=== PATIENT | male | born 1945 | race Caucasian/White ===

== ENCOUNTER 2017-01-17 21:28 | Inpatient (IN) | payer OTHER ==
[~2017-01-17] VITALS: Ht 172.7 cm; Wt 72.0 kg
[~2017-01-17 21:28] MED LIST: ASPI81 PO; ATOR20TA PO; CARV6.25 PO; CYMB30CA PO; D31000TA PO; FINA5TAB77 PO; FOLI1 PO; HYDR-3534 PO; LEVE750T8 PO; LEVO.025 PO; LISI5 PO; MORP30SU PO; TRAZ100 PO; WARF3TAB PO
[2017-01-17 21:44] VITALS: BP 160/68; PULSE 97; RESP 22; TEMP 98.1; O2SAT 94
[2017-01-17] MEDS ORDERED: ASPI1TAB69 PO (21:50)
[2017-01-17] MEDS ORDERED: ATOR20TA15 PO (21:50)
[2017-01-17] MEDS ORDERED: CARV6.25 PO (21:51)
[2017-01-17] MEDS ORDERED: CHOL1CAP14 PO (21:51)
[2017-01-17] MEDS ORDERED: CYMB30CA PO (21:52)
[2017-01-17] MEDS ORDERED: FOLI5CAP PO (21:52)
[2017-01-17] MEDS ORDERED: PROS5TAB PO (21:52)
[2017-01-17] MEDS ORDERED: LEVE750T8 PO (21:53)
[2017-01-17] MEDS ORDERED: LEVO25TA4 PO (21:53)
[2017-01-17] MEDS ORDERED: TRAZ100T4 PO (21:54)
[2017-01-17] MEDS ORDERED: HYDR-3580 PO (21:54)
[2017-01-17] MEDS ORDERED: COUM3TAB PO (21:54)
[2017-01-17 22:08] VITALS: RESP 18; O2SAT 94
[2017-01-17] MEDS ORDERED: SODIUM CHLORIDE 0.9% FLUSH 10 ML FLUSH IVF PRN (22:15)
[2017-01-17 22:26] LABS: AUTOMATED NEUTROPHIL # 5.5 TH/MM3 (1.8-7.7); BASOPHIL # 0.1 TH/MM3 (0-0.2); BASOPHIL % 0.9 % (0.0-2.0); EOSINOPHIL # 0.3 TH/MM3 (0-0.4); EOSINOPHIL % 4.1 % (0.0-4.0); HEMATOCRIT 31.7 % (39.0-51.0); HEMO FLAGS DIFF FINAL; LYMPH % 16.1 % (9.0-44.0); LYMPHOCYTE # 1.3 TH/MM3 (1.0-4.8); MEAN CELL VOLUME 87.4 FL (80.0-100.0); MEAN CORPUSCULAR HEMOGLOBIN 29.8 PG (27.0-34.0); MEAN CORPUSCULAR HGB CONC 34.1 % (32.0-36.0); NEUT % 68.9 % (16.0-70.0); PLATELET COUNT 149 TH/MM3 (150-450); RED BLOOD COUNT 3.62 MIL/MM3 (4.50-5.90)
--- NOTE | 2017-01-17 22:30 | RADRPT ---
EXAM DATE/TIME: 01/17/2017 22:15 [place] COMPARISON: CHEST PA & LAT, January 18, 2016, 7:48. CHEST SINGLE AP, January 12, 2016, 15:33. INDICATIONS : Short of breath. MEDICAL HISTORY : Chronic obstructive pulmonary disease. Cardiovascular disease. SURGICAL HISTORY : CABG. Pacemaker. ENCOUNTER: Initial ACUITY: 1 day PAIN SCORE: 0/10 LOCATION: Bilateral chest FINDINGS: 2 AP portable erect views of the chest were obtained and demonstrate the patient status post median s ternotomy for bypass grafting procedure. The left subclavian transvenous pacer remains in place. The heart size remains mildly prominent. There is mild patchy opacity at the left lung base. There is sta ble elevation of left hemidiaphragm. There is overlying artifact. CONCLUSION: No significant change. Mild patchy opacity remains at the left lung base with mild elevation of the l eft hemidiaphragm. Star Torres MD on January 17, 2017 at 22:27 Board Certified Radiologist. This report was verified electronically.
[2017-01-17 22:33] LABS: APTT (PATIENT) 73.5 SEC (24.3-30.1); INTERNATIONAL NORMALIZED RATIO 4.4 RATIO; PROTHROMBIN TIME - PATIENT 52.1 SEC (9.8-11.6)
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
[2017-01-17 22:55] LABS: ANION GAP 12 MEQ/L (5-15); AST (GOT) 16 U/L (15-37); BICARBONATE 19.7 MEQ/L (21.0-32.0); BLOOD UREA NITROGEN 31 MG/DL (7-18); CHLORIDE 108 MEQ/L (98-107); GLOMERULAR FILTRATION RATE 40 ML/MIN (>89); POTASSIUM 3.8 MEQ/L (3.5-5.1); SODIUM (NA) 140 MEQ/L (136-145)
[2017-01-17 22:59] LABS: ALKALINE PHOSPHATASE 115 U/L (45-117); ALT (GPT) 17 U/L (12-78); CREATINE KINASE 108 U/L (39-308); TOTAL BILIRUBIN ADULT 0.4 MG/DL (0.2-1.0)
[2017-01-17 23:11] LABS: CKMB 1.2 NG/ML (0.5-3.6)
[2017-01-18] VITALS (9 sets, daily range): BP systolic 105–127; BP diastolic 51–63; PULSE 66–78; RESP 16–24; TEMP 97.3–98.1; O2SAT 93–98
[2017-01-18] MEDS ORDERED: ACETAMINOPHEN/HYDROcodone 325 MG/5 MG TAB PO ONE (00:45)
[2017-01-18] MEDS ORDERED: NALOXONE HCL 0.4 MG/ML AMP IV PRN (00:45)
[2017-01-18] MEDS ORDERED: AZITHROMYCIN INJ 500 MG in SODIUM CHLOR 0.9% 250 ML INJ 250 ML IV ONE (01:00)
[2017-01-18] MEDS ORDERED: RESP: ALBUTEROL 2.5 MG/IPRATROPIUM 0.5 MG NEB (PRN) NEB (01:00)
[2017-01-18] MEDS ORDERED: cefTRIAXone INJ 1,000 MG in SODIUM CHLORIDE 0.9% INJ 100 ML IV ONE (01:00)
[2017-01-18] MEDS: RESP: ALBUTEROL 2.5 MG/IPRATROPIUM 0.5 MG NEB (SCH) NEB ×4 (03:05→20:55)
[2017-01-18 06:05] LABS: CREATINE KINASE 94 U/L (39-308)
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
[2017-01-18] MEDS ORDERED: methylPREDNISolone SOD SUCC 40 MG/1 ML VIAL IV PUSH ONE (09:00)
[2017-01-18] MEDS ORDERED: ACETAMINOPHEN 325 MG TAB PO PRN (10:15)
[2017-01-18] MEDS: SODIUM CHLORIDE 0.9% FLUSH 10 ML FLUSH IV FLUSH SCH ×2 (10:26→21:15)
[2017-01-18] MEDS: guaiFENesin/CODEINE SYRUP 200 MG/20 MG/10 ML CUP PO PRN (10:27)
[2017-01-18] MEDS: ACETAMINOPHEN/HYDROcodone 325 MG/7.5 MG TAB PO PRN ×2 (10:27→18:19)
[2017-01-18] MEDS: levETIRAcetam 250 MG TAB PO SCH ×2 (10:30→21:16)
[2017-01-18] MEDS: DULoxetine HCl DR 30 MG CAP PO SCH (11:41)
[2017-01-18] MEDS: LEVOTHYROXINE SODIUM 25 MCG TAB PO SCH (11:42)
[2017-01-18] MEDS: ASPIRIN EC 81 MG TABEC PO SCH (11:42)
[2017-01-18] MEDS: CHOLECALCIFEROL (VIT D3) 5000 UNIT CAP PO SCH (11:42)
[2017-01-18] MEDS: CARVEDILOL 6.25 MG TAB PO SCH ×2 (11:43→21:15)
[2017-01-18 12:12] LABS: CREATINE KINASE 90 U/L (39-308)
--- NOTE | 2017-01-18 12:27 | EC ---
Study Study Date:01/18/2017 STUDY CONCLUSIONS SUMMARY - Left ventricle: The cavity size was dilated. Wall thickness was increased in a pattern of mild LVH. Systolic function was moderately reduced by visual assessment. The estimated ejection fraction was in the range of 35% to 40%. - Mitral valve: Moderate regurgitation directed eccentrically and posteriorly. - Left atrium: The atrium was mildly to moderately dilated. - Tricuspid valve: Mild-moderate regurgitation. If LV function is below 40, please consider prescribing an ACEI or ARB or document rationale for non-use. PROCEDURE DATA STUDY STATUS: Elective. Procedure: Transthoracic echocardiography. Image quality was good. Scanning was performed from the parasternal, apical, and subcostal acoustic windows. Study completion: The patient tolerated the procedure well. Transthoracic echocardiography. M-mode, complete 2D, complete spectral Doppler, and color Doppler. Patient status: Inpatient. CARDIAC ANATOMY LEFT VENTRICLE: Not well visualized. The cavity size was dilated. Wall thickness was increased in a pattern of mild LVH. Systolic function was moderately reduced by visual assessment. The estimated ejection fraction was in the range of 35% to 40%. Images were inadequate for LV wall motion assessment. AORTIC VALVE: Trileaflet; normal thickness leaflets. Doppler: Transvalvular velocity was within the normal range. There was no stenosis. No regurgitation. AORTA: Aortic root: The aortic root was normal in size. MITRAL VALVE: Structurally normal valve. Doppler: Transvalvular velocity was within the normal range. There was no evidence for stenosis. Moderate regurgitation directed eccentrically and posteriorly. Peak gradient: 4mm Hg (D). LEFT ATRIUM: The atrium was mildly to moderately dilated. RIGHT VENTRICLE: The cavity size was normal. Wall thickness was normal. Pacer wire or catheter noted in right ventricle. PULMONIC VALVE: Doppler: Transvalvular velocity was within the normal range. There was no evidence for stenosis. No regurgitation. TRICUSPID VALVE: Structurally normal valve. Doppler: Transvalvular velocity was within the normal range. Mild-moderate regurgitation. PULMONARY ARTERY: The main pulmonary artery was normal-sized. Systolic pressure was within the normal range. RIGHT ATRIUM: The atrium was normal in size. PERICARDIUM: There was no pericardial effusion. SYSTEMIC VEINS: Inferior vena cava: The vessel was normal in size. BASIC MEASUREMENTS ADULT Normal Left ventricle LV internal dimension, ED, chordal level, *52.2 mm 43-52 PLAX LV internal dimension, ES, chordal level, *45.4 mm 23-38 PLAX Fractional shortening, chordal level, PLAX *13 % >29 LV posterior wall thickness, ED 11.9 mm IVS/LVPW ratio, ED 0.97 <1.3 Ventricular septum Septal thickness, ED 11.5 mm Aortic valve Leaflet separation 21 mm 15-26 Left atrium Anterior-posterior dimension 47 mm Right ventricle RV internal dimension, ED, PLAX 22.5 mm 19-38 BASIC MEASUREMENTS ADULT Normal Aortic valve Leaflet separation 21 mm 15-26 Aorta Root diameter, ED 33 mm 20-37 Left atrium Anterior-posterior dimension, ES *45 mm 19-40 LA/aortic root ratio 1.36 DOPPLER MEASUREMENTS ADULT Normal Mitral valve Peak E-wave velocity 101 cm/s Peak A-wave velocity 79 cm/s Peak gradient, D 4 mm Hg Peak E/A ratio 1.3 Maximal regurgitant velocity 523 cm/s Tricuspid valve Regurgitant peak velocity 264 cm/s Peak RV-RA gradient, S 28 mm Hg LEGEND: Mean values are shown as u=mean value. Asterisk (*) blake values outside specified normal range. Prepared and signed by Naif Swanson [id number]
[2017-01-18] MEDS: BENZONATATE 100 MG CAP PO SCH ×2 (14:30→18:19)
[2017-01-18] MEDS: methylPREDNISolone SOD SUCC 40 MG/1 ML VIAL IV PUSH SCH ×2 (14:31→21:15)
[2017-01-18] MEDS: ACETAMINOPHEN/HYDROcodone 325 MG/5 MG TAB PO PRN (14:31)
--- NOTE | 2017-01-18 18:29 | EKG ---
Date Performed: 01/17/2017 Time Performed: 21:47:01 PTAGE: 71 years EKG: ELECTRONIC VENTRICULAR PACEMAKER ABNORMAL RHYTHM ECG Compared to prior tracing no significa nt change PREVIOUS TRACING : 01/18/2016 07.30 DOCTOR: Yuan Avilez Interpretating Date/Time 01/18/2017 18:26:45
--- NOTE | 2017-01-18 18:30 | EKG ---
Date Performed: 01/18/2017 Time Performed: 04:06:15 PTAGE: 71 years EKG: ELECTRONIC VENTRICULAR PACEMAKER ABNORMAL RHYTHM ECG Compared to prior tracing no significa nt change PREVIOUS TRACING : 01/17/2017 21.47 DOCTOR: Yuan Avilez Interpretating Date/Time 01/18/2017 18:26:55
[2017-01-18] MEDS: SODIUM CHLORIDE 0.9% FLUSH 10 ML FLUSH IV FLUSH PRN (21:15)
[2017-01-18] MEDS: ATORVASTATIN 20 MG TAB PO SCH (21:16)
[2017-01-18] MEDS: traZODone HCL 100 MG TAB PO SCH (21:16)
[2017-01-19] VITALS (7 sets, daily range): BP systolic 110–167; BP diastolic 53–77; PULSE 60–80; RESP 18–22; TEMP 97.6–98; O2SAT 93–96
[2017-01-19] MEDS: ACETAMINOPHEN/HYDROcodone 325 MG/7.5 MG TAB PO PRN ×4 (01:02→20:24)
[2017-01-19] MEDS: RESP: ALBUTEROL 2.5 MG/IPRATROPIUM 0.5 MG NEB (SCH) NEB ×4 (03:42→20:50)
[2017-01-19] MEDS: LEVOTHYROXINE SODIUM 25 MCG TAB PO SCH (06:18)
[2017-01-19] MEDS: SODIUM CHLORIDE 0.9% FLUSH 10 ML FLUSH IV FLUSH PRN (06:18)
[2017-01-19] MEDS: methylPREDNISolone SOD SUCC 40 MG/1 ML VIAL IV PUSH SCH ×3 (06:18→22:08)
[2017-01-19 07:44] LABS: INTERNATIONAL NORMALIZED RATIO 4.1 RATIO
[2017-01-19 07:53] LABS: AUTOMATED NEUTROPHIL # 11.1 TH/MM3 (1.8-7.7); BASOPHIL % 0.2 % (0.0-2.0); HEMATOCRIT 30.2 % (39.0-51.0); HEMO FLAGS DIFF FINAL; LYMPH % 4.3 % (9.0-44.0); LYMPHOCYTE # 0.5 TH/MM3 (1.0-4.8); MEAN CELL VOLUME 87.6 FL (80.0-100.0); MEAN CORPUSCULAR HEMOGLOBIN 28.2 PG (27.0-34.0); MEAN CORPUSCULAR HGB CONC 32.2 % (32.0-36.0); MONO % 3.2 % (0.0-8.0); NEUT % 92.3 % (16.0-70.0); PLATELET COUNT 144 TH/MM3 (150-450); RED BLOOD COUNT 3.44 MIL/MM3 (4.50-5.90); RED CELL DISTRIBUTION WIDTH 15.2 % (11.6-17.2)
[2017-01-19 08:13] LABS: BICARBONATE 21.9 MEQ/L (21.0-32.0); POTASSIUM 4.6 MEQ/L (3.5-5.1)
[2017-01-19] MEDS: CHOLECALCIFEROL (VIT D3) 5000 UNIT CAP PO SCH (09:15)
[2017-01-19] MEDS: DULoxetine HCl DR 30 MG CAP PO SCH (09:15)
[2017-01-19] MEDS: levETIRAcetam 250 MG TAB PO SCH ×2 (09:15→20:10)
[2017-01-19] MEDS: CARVEDILOL 6.25 MG TAB PO SCH ×2 (09:15→20:09)
[2017-01-19] MEDS: ASPIRIN EC 81 MG TABEC PO SCH (09:16)
[2017-01-19] MEDS: BENZONATATE 100 MG CAP PO SCH ×3 (09:16→16:36)
[2017-01-19] MEDS: ACETAMINOPHEN/HYDROcodone 325 MG/5 MG TAB PO PRN ×2 (09:16→15:07)
[2017-01-19] MEDS: SODIUM CHLORIDE 0.9% FLUSH 10 ML FLUSH IV FLUSH SCH ×2 (09:16→20:10)
[2017-01-19] MEDS: guaiFENesin/CODEINE SYRUP 200 MG/20 MG/10 ML CUP PO PRN (11:18)
--- NOTE | 2017-01-19 11:35 | HHI.PR ---
Subjective Remarks Follow up for COPD exacerbation. The patient reports continued nonproductive cough, shortness of breath, and wheezing today. The patient reports he was coughing a bunch yesterday then he felt a "pull" at the right side of his abdomen, now feels a large "knot" that is tender to palpation, worse with coughing. He has never noticed this before. He believes there was some overlying redness yesterday but no noticeable redness today. He denies any nausea/vomiting or diarrhea/constipation. He has no other medical complaints at this time. Objective Vitals Vital Signs Date Time Temp Pulse Resp B/P Pulse Ox O2 Delivery O2 Flow Rate FiO2 01/19/17 08:08 97.6 64 18 130/65 96 01/19/17 04:00 98.0 75 20 110/53 96 01/19/17 00:00 97.7 80 22 126/60 93 01/18/17 20:13 98.1 71 20 105/51 93 01/18/17 20:00 66 01/18/17 15:15 97.9 78 16 114/63 96 01/18/17 11:52 97.5 78 16 115/55 96 I/O 01/18/17 01/18/17 01/18/17 01/19/17 01/19/17 01/19/17 07:00 15:00 23:00 07:00 15:00 23:00 Intake Total 400 ml 240 ml 50 ml Output Total 300 ml 500 ml Balance 400 ml -60 ml 50 ml -500 ml Intake Oral 400 ml 240 ml 50 ml Output Urine Total 300 ml 500 ml # Bowel Movements 0 Result Diagram: 01/19/17 0608 01/19/17 0608 Imaging Last Impressions Chest X-Ray 01/17/172202 Signed Impressions: Service Date/Time: Tuesday, January 17, 2017 22:15 - CONCLUSION: No significant change. Mild patchy opacity remains at the left lung base with mild elevation of the left hemidiaphragm. Star Torres MD Objective Remarks GENERAL: Well-nourished, well-developed elderly male patient in [facility]. SKIN: Warm and dry. No rash. HEENT: Normocephalic. Atraumatic.Pupils equal and round. Mucous membranes pink and moist. NECK: Supple. Trachea midline. CARDIOVASCULAR: Regular rate and rhythm. S1, S2 noted. No murmur appreciated. RESPIRATORY: No accessory muscle use. Diffuse expiratory wheezing throughout with scattered rhonchi. Breath sounds equal bilaterally. GASTROINTESTINAL: Abdomen soft, nondistended. Normoactive bowel sounds x4. Right lateral abdominal wall with large mass-like area, tender to palpation. MUSCULOSKELETAL: No obvious deformities. Extremities without clubbing, cyanosis , or edema. NEUROLOGICAL: Awake and alert. No obvious cranial nerve deficits. Motor grossly within normal limits. Normal speech. PSYCHIATRIC: Appropriate mood and affect; insight and judgment normal. Medications and IVs Current Medications Medications (Trade) Dose Ordered Sig/Sina Route Start Time Stop Time Status Last Admin (NS Flush) 2 ml UNSCH PRN IV FLUSH 01/18/17 00:45 01/19/17 06:18 (NS Flush) 2 ml BID IV FLUSH 01/18/17 09:00 01/19/17 09:16 (Narcan Inj) 0.4 mg UNSCH PRN IV 01/18/17 00:45 (SoluMEDROL INJ) 40 mg Q8HR IV PUSH 01/18/17 14:00 01/19/17 06:18 (Tylenol) 650 mg Q6H PRN PO 01/18/17 10:15 ([place] 5-325 Mg) 1 tab Q4H PRN PO 01/18/17 10:15 01/19/17 09:16 ([place] 7.5-325 Mg) 1 tab Q4H PRN PO 01/18/17 10:15 01/19/17 01:02 (Robitussin Ac 200-20 Mg/10 ml Liq) 10 ml Q4HR PRN PO 01/18/17 12:00 01/19/17 11:18 (Tessalon) 100 mg TID PO 01/18/17 13:00 01/19/17 09:16 (Ecotrin Ec) 81 mg DAILY PO 01/18/17 10:30 01/19/17 09:16 (Lipitor) 20 mg HS PO 01/18/17 21:00 01/18/17 21:16 (Coreg) 6.25 mg BID PO 01/18/17 10:30 01/19/17 09:15 (Vitamin D3) 5,000 units DAILY PO 01/18/17 10:30 5/5/17 09:15 (Cymbalta Dr) 30 mg DAILY PO 01/18/17 10:30 01/19/17 09:15 (Keppra) 750 mg BID PO 01/18/17 10:30 01/19/17 09:15 (Synthroid) 12.5 mcg DAILY@06 PO 01/18/17 10:30 01/19/17 06:18 (Desyrel) 200 mg HS PO 01/18/17 21:00 01/18/17 21:16 A/P Problem List: (1) COPD exacerbation ICD Code: J44.1 Status: Acute Assessment and Plan 71-year-old male with history of COPD, CAD s/p CABG, CHF EF 30-35% on echo [id number], Atrial fibrillation s/p pacemaker, on Coumadin, CKD, presents for a 10 day history of productive cough. COPD Exacerbation: likely precipitated by URI. CXR images reviewed, shows mild patchy opacity left lung base. +wheezing on exam. Afebrile, no leukocytosis. Continue antibiotics. Start on IV Solumedrol 40mg q8h. Continue duonebs q6h. Tessalon tid. Robitussin w/codeine prn severe cough. Minimally improved overnight, continue close monitoring. Community Acquired Pneumonia: CXR with patchy opacity LLL. Continue IV Rocephin/ Azithro. Supportive treatment with bronchodilators and antitussives as above. Atypical Chest Pain: suspect secondary to cough/pneumonia as above, pain worse with cough/deep inspiration. Doubt PE with supratherapeutic INR. Ruled out ACS with serial cardiac enzymes x3 and EKG without acute ischemic changes. Continue patient's aspirin, statin, BB. Monitor on telemetry. Abdominal Pain: with palpable mass-like area at right side abdominal wall, possible hematoma with supratherapeutic INR. Check abdominal CT. Monitor CBC. CHF: with elevated BNP 306. Last echocardiogram Oct 2015 showed EF 30-35%. Repeat echocardiogram showed EF 35-40%. Continue patient's coreg, aspirin, statin. Cannot have MADELINE secondary to borderline low BP and CKD. Paroxysmal Atrial Fibrillation with supratherapeutic INR: INR 4.4. Hold coumadin. Monitor daily INR, still supratherapeutic. Continue patient's coreg. CKD, stage III: Cr 1.7, close to patient's baseline of 1.5. Monitor renal function. Avoid nephrotoxins. Hyperlipidemia: chronic, continue patient's statin. Chronic Back Pain: continue patient's [place]. All other medical conditions stable, continue home medications as appropriate. DVT Prophylaxis: on coumadin with supratherapeutic INR Discussed with Dr. Oshea. Kelsie Castro PA-C January 19, 2017 11:35 am
--- NOTE | 2017-01-19 15:51 | EKG ---
Date Performed: 01/18/2017 Time Performed: 10:03:48 PTAGE: 71 years EKG: ELECTRONIC VENTRICULAR PACEMAKER ABNORMAL RHYTHM ECG PREVIOUS TRACING : 01/18/2017 04.06 DOCTOR: Oli Riojas Interpretating Date/Time 01/19/2017 15:41:56
--- NOTE | 2017-01-19 17:38 | RADRPT ---
EXAM DATE/TIME: 01/19/2017 17:15 [place] COMPARISON: No previous studies available for comparison. INDICATIONS : Right upper qudrant pain for ten days. ORAL CONTRAST: No oral contrast ingested. RADIATION DOSE: 12.51 CTDIvol (mGy) MEDICAL HISTORY : Cardiovascular disease. SURGICAL HISTORY : Pacemaker. CABGBack surgery ENCOUNTER: Initial ACUITY: 2 weeks PAIN SCALE: 10/10 LOCATION: Abdomen TECHNIQUE: Volumetric scanning of the abdomen and pelvis was performed. Using automated exposure control and ad justment of the mA and/or kV according to patient size, radiation dose was kept as low as reasonably achievable to obtain optimal diagnostic quality images. FINDINGS: LOWER LUNGS: Elevated left diaphragm with mild atelectasis or scarring at left base. LIVER: Homogeneous density without lesion. There is no dilation of the biliary tree. No calcified [place] es. SPLEEN: Normal size without lesion. PANCREAS: Within normal limits. KIDNEYS: Right renal cysts. No evidence of stone or hydronephrosis. ADRENAL GLANDS: Within normal limits. VASCULAR: Extensive atherosclerotic calcification. Minimal aortic ectasia. BOWEL/MESENTERY: The stomach, small bowel, and colon demonstrate no acute abnormality. There is no free intraperitone al air or fluid. ABDOMINAL WALL: Extensive hematoma in the rectus sheath on the right extending from the upper abdomen down to the ing uinal region with some seepage into the anterior extraperitoneal pelvis adjacent to the bladder. RETROPERITONEUM: There is no lymphadenopathy. BLADDER: No wall thickening or mass. REPRODUCTIVE: Within normal limits. INGUINAL: There is no lymphadenopathy or hernia. MUSCULOSKELETAL: Previous lumbar hardware fusion and multilevel laminectomy. Degenerative changes. CONCLUSION: Extensive hematoma in the right rectus sheath. Markell Titus MD on January 19, 2017 at 17:32 Board Certified Radiologist. This report was verified electronically.
[2017-01-19] MEDS ORDERED: PILL SPLITTER OTHER PRN (18:30)
[2017-01-19] MEDS ORDERED: PHYTONADIONE 5 MG TAB PO ONE (18:30)
[2017-01-19] MEDS: traZODone HCL 100 MG TAB PO SCH (20:09)
[2017-01-19] MEDS: ATORVASTATIN 20 MG TAB PO SCH (20:09)
[2017-01-19 20:48] LABS: HEMATOCRIT 26.5 % (39.0-51.0); REVIEW FLAG FINAL
[2017-01-19] MEDS ORDERED: MORPHINE SULFATE 4 MG/ML INJ IV PUSH PRN (22:00)
[2017-01-20] VITALS (14 sets, daily range): BP systolic 82–130; BP diastolic 40–76; PULSE 68–165; RESP 16–31; TEMP 97.2–98.4; O2SAT 93–100
[2017-01-20 00:16] LABS: HEMATOCRIT 25.5 % (39.0-51.0); REVIEW FLAG FINAL
[2017-01-20] MEDS: HYDROmorphone HCL PF 1 MG/ML VIAL IV PUSH PRN ×2 (00:37→04:32)
[2017-01-20] MEDS: RESP: ALBUTEROL 2.5 MG/IPRATROPIUM 0.5 MG NEB (SCH) NEB ×3 (04:00→20:46)
[2017-01-20 04:03] LABS: ANION GAP 12 MEQ/L (5-15); BICARBONATE 20.9 MEQ/L (21.0-32.0); BLOOD UREA NITROGEN 60 MG/DL (7-18); CHLORIDE 106 MEQ/L (98-107); GLOMERULAR FILTRATION RATE 34 ML/MIN (>89); MAGNESIUM 2.2 MG/DL (1.5-2.5); POTASSIUM 4.7 MEQ/L (3.5-5.1); SODIUM (NA) 139 MEQ/L (136-145)
[2017-01-20 05:44] LABS: INTERNATIONAL NORMALIZED RATIO 3.2 RATIO; PROTHROMBIN TIME - PATIENT 36.7 SEC (9.8-11.6)
[2017-01-20] MEDS: LEVOTHYROXINE SODIUM 25 MCG TAB PO SCH (05:56)
[2017-01-20] MEDS: methylPREDNISolone SOD SUCC 40 MG/1 ML VIAL IV PUSH SCH (05:56)
[2017-01-20 06:06] LABS: BICARBONATE 18.7 MEQ/L (21.0-32.0); POTASSIUM 4.8 MEQ/L (3.5-5.1)
[2017-01-20 06:08] LABS: AUTOMATED NEUTROPHIL # 20.2 TH/MM3 (1.8-7.7); BASOPHIL % 0.1 % (0.0-2.0); HEMATOCRIT 25.5 % (39.0-51.0); HEMO FLAGS DIFF FINAL; LYMPH % 3.1 % (9.0-44.0); LYMPHOCYTE # 0.7 TH/MM3 (1.0-4.8); MEAN CELL VOLUME 92.3 FL (80.0-100.0); MEAN CORPUSCULAR HEMOGLOBIN 29.2 PG (27.0-34.0); MEAN CORPUSCULAR HGB CONC 31.6 % (32.0-36.0); MONO % 4.9 % (0.0-8.0); NEUT % 91.9 % (16.0-70.0); PLATELET COUNT 223 TH/MM3 (150-450); RED BLOOD COUNT 2.76 MIL/MM3 (4.50-5.90); RED CELL DISTRIBUTION WIDTH 15.7 % (11.6-17.2); WHITE BLOOD COUNT 21.9 TH/MM3 (4.0-11.0)
[2017-01-20] MEDS: BENZONATATE 100 MG CAP PO SCH ×3 (08:13→16:52)
[2017-01-20] MEDS: DULoxetine HCl DR 30 MG CAP PO SCH (08:13)
[2017-01-20] MEDS: levETIRAcetam 250 MG TAB PO SCH (08:13)
[2017-01-20] MEDS: SODIUM CHLORIDE 0.9% FLUSH 10 ML FLUSH IV FLUSH SCH (08:13)
[2017-01-20] MEDS: CHOLECALCIFEROL (VIT D3) 5000 UNIT CAP PO SCH (08:13)
[2017-01-20] MEDS: guaiFENesin/CODEINE SYRUP 200 MG/20 MG/10 ML CUP PO PRN ×2 (08:13→13:11)
[2017-01-20] MEDS: CARVEDILOL 6.25 MG TAB PO SCH (08:14)
[2017-01-20] MEDS ORDERED: SODIUM CHLOR 0.9% 250 ML INJ 250 ML IV ONE (08:45)
--- NOTE | 2017-01-20 09:18 | HHI.PR ---
Subjective Remarks Patient seen for follow up COPD exacerbation. 01/20/2017 - patient seen this morning. C/o right-sided abdominal pain and swelling yesterday. CT scan showed extensive, rectus sheath hematoma on the right side. Patient now has low BPs this morning (MAP 50s compared to MAP in 80s yesterday). Uri c/o worsening SOB today. Main complaint is cough not well controlled. On review of EMR, it appears he has refused last several breathing treatments. No F/C or CP. Patient also c/o worsening RLQ pain compared to yesterday. He does feel pain responds well to dilaudid. Denies any N/V or diarrhea. Does have mild dizziness. Objective Vitals Vital Signs Date Time Temp Pulse Resp B/P Pulse Ox O2 Delivery O2 Flow Rate FiO2 01/20/17 08:06 97.9 68 18 85/40 95 01/20/17 06:20 98.4 77 18 96/50 93 01/20/17 05:02 16 01/20/17 00:08 98.4 76 18 129/60 97 01/19/17 20:22 98.0 67 18 167/77 96 01/19/17 20:00 72 01/19/17 14:37 62 18 133/67 96 01/19/17 12:07 97.9 60 18 132/64 96 I/O 01/19/17 01/19/17 01/19/17 01/20/17 01/20/17 01/20/17 07:00 15:00 23:00 07:00 15:00 23:00 Intake Total 500 ml Output Total 500 ml 500 ml Balance -500 ml 0 ml Intake Oral 500 ml Output Urine Total 500 ml 500 ml # Bowel Movements 0 Result Diagram: 01/20/17 0500 01/20/17 0500 Objective Remarks GENERAL: Well-nourished, well-developed elderly male patient in [facility]. SKIN: Warm and dry. No rash. HEENT: Normocephalic. Atraumatic.Pupils equal and round. Mucous membranes pink and moist. NECK: Supple. Trachea midline. CARDIOVASCULAR: Regular rate and rhythm. S1, S2 noted. No murmur appreciated. RESPIRATORY: No accessory muscle use. Diffuse expiratory wheezing throughout with scattered rhonchi. Breath sounds equal bilaterally. GASTROINTESTINAL: Abdomen soft, nondistended. Normoactive bowel sounds x4. Right lateral abdominal wall with ~ 10 cm palpable mass that is moderately TTP. MUSCULOSKELETAL: No obvious deformities. Extremities without clubbing, cyanosis , or edema. NEUROLOGICAL: Awake and alert. No obvious cranial nerve deficits. Motor grossly within normal limits. Normal speech. PSYCHIATRIC: Appropriate mood and affect; insight and judgment normal. A/P Problem List: (1) COPD exacerbation ICD Code: J44.1 Status: Acute (2) Rectus sheath hematoma ICD Code: S30.1XXA Status: Acute (3) Supratherapeutic INR ICD Code: R79.1 Status: Acute (4) CKD (chronic kidney disease) stage 3, GFR 30-59 ml/min ICD Code: N18.3 Status: Acute (5) Cardiomyopathy ICD Code: I42.9 Status: Chronic Assessment and Plan 71-year-old male with history of COPD, CAD s/p CABG, CHF EF 30-35% on echo [id number], Atrial fibrillation s/p pacemaker, on Coumadin, CKD, presents for a 10 day history of productive cough. Rectus sheath hematoma: CT ab shows extensive, right rectus sheath hematoma. Hemoglobin down to the 8s. MAP in the 50s. Will order transfusion 4u pRBC. Follow serial H/H. Holding warfarin. Will give vitamin K 5mg PO x1 today for reversal. Abdominal binder. Discussed with surgery. Will consult if any evidence of skin necrosis or change in abdominal exam. Admit to inpatient. Transfer to med-surg with tele. COPD Exacerbation: likely precipitated by URI. CXR images reviewed, shows mild patchy opacity left lung base. +wheezing on exam. Afebrile, no leukocytosis. DC abx 2/2 supratherapeutic INR with rectus sheath hematoma. Cont IV solumedrol for now. Continue duonebs q6h. Robitussin with codeine for cough + Tessalon. Breathing worse overnight. Strongly advised to do breathing tx for SOB. Community Acquired Pneumonia: CXR with patchy opacity LLL. Appears to be old finding. Will discuss with radiology. Hold abx for now. Supportive treatment with bronchodilators and antitussives as above. Atypical Chest Pain: suspect secondary to cough/pneumonia as above, pain worse with cough/deep inspiration. Doubt PE with supratherapeutic INR. Ruled out ACS with serial cardiac enzymes x3 and EKG without acute ischemic changes. Continue patient's aspirin, statin, BB. Monitor on telemetry. CHF: with elevated BNP 306. Last echocardiogram Oct 2015 showed EF 30-35%. Repeat echocardiogram showed EF 35-40%. Continue patient's coreg, statin. Cannot have MADELINE secondary to borderline low BP and CKD. Paroxysmal Atrial Fibrillation with supratherapeutic INR: INR 4.4. Hold coumadin. Monitor daily INR, still supratherapeutic at 3.2. Continue patient's coreg. CKD, stage III: acutely worsening. Creatinine 2.35 today compared to baseline ~ 1.5. Suspect relation to hematoma. Transfuse, as above. Hyperlipidemia: chronic, continue patient's statin. Chronic Back Pain: continue patient's [place]. All other medical conditions stable, continue home medications as appropriate. DVT Prophylaxis: SCDs. Warfarin on hold 2/2 supratherapeutic INR. Problem Qualifiers (1) Cardiomyopathy: Qualified Code: I42.9 - Cardiomyopathy, unspecified type Ihsan Gaytan MD R3 January 20, 2017 09:18
[2017-01-20] MEDS ORDERED: PHYTONADIONE 5 MG TAB PO ONE (10:00)
[2017-01-20] MEDS ORDERED: FUROSEMIDE 20 MG/2 ML VIAL IV PUSH ONE (10:00)
[2017-01-20 12:00] LABS: HEMATOCRIT 22.6 % (39.0-51.0); REVIEW FLAG FINAL
[2017-01-20 13:21] LABS: HEMATOCRIT 22.6 % (39.0-51.0); REVIEW FLAG FINAL
[2017-01-20] MEDS ORDERED: methylPREDNISolone SOD SUCC 40 MG/1 ML VIAL IV PUSH SCH (14:00)
--- NOTE | 2017-01-20 15:24 | HHI.FPPN ---
Addendum to progress note ADDENDUM Reason for addendum: Additonal documentation Additional information Discussed CXR and CT ab results with radiology. Left lower lobe findings on CT ab more consistent with chronic fibrosis. -patient clinic presentation not consistent with PNA. Additionally, concern for elevation of INR with antibiotics. Will hold antibiotics at this time. Ihsan Gaytan MD R3 January 20, 2017 15:24
[2017-01-20] MEDS ORDERED: ACETAMINOPHEN/HYDROcodone 325 MG/5 MG TAB PO PRN ×2 (15:30)
[2017-01-20] MEDS: MORPHINE SULFATE 4 MG/ML INJ IV PUSH PRN ×2 (15:34→21:21)
[2017-01-20] MEDS ORDERED: ALBUMIN HUMAN 5% 12.5 GM/250 ML BOTTLE IV ONE (17:52)
[2017-01-20] MEDS ORDERED: PHENYLEPHRINE HCL 10 MG/ML VIAL ONE (17:55)
[2017-01-20] MEDS ORDERED: PHENYLEPHRINE 40 MG/D5W 496 ML ADMIX IV SCH ×2 (18:00)
[2017-01-20] MEDS ORDERED: TERBUTALINE INJ 1 MG/ML AMP SQ PRN (18:00)
--- NOTE | 2017-01-20 18:42 | HHI.FPPN ---
Addendum to progress note ADDENDUM Reason for addendum: Additonal documentation Additional information S: spoke with nursing at 1711 regarding change in patient status. Nursing reported abnormal rhythm on tele. In addition, patient becoming less responsive. Most recent pressure 102/58 at 1410. Sats 95% on room air. Patient not c/o CP or SOB. Halicat was called. Stat EKG showed a wide complex tachycardia, difficult to assess ST segments based on wandering baseline. Transfer to [facility] ordered. O: VITALS: sats 93% on 6L venti mask. GENERAL: pale, ill-appearing, diaphoretic, sitting up in bed. SKIN: pale, Skin cool and dry. HEAD: Normocephalic. EYES: No scleral icterus. No injection or drainage. NECK: Supple, trachea midline. No JVD or lymphadenopathy. CARDIOVASCULAR: Tachycardic with irregularly irregular rhythm. RESPIRATORY: Breath sounds equal bilaterally. No accessory muscle use. Faint rales at the left lung base. GASTROINTESTINAL: Abdomen soft, obviously distended. ~10 cm palpable mass in RLQ, now severely TTP. +bs in all 4 quadrants. EXTREMITIES: No cyanosis, or edema. NEUROLOGICAL: Awake, alert, and oriented x 3. Non-focal. A/P: 71 year old male with h/o CAD, CHF, Afib on coumadin, and COPD admitted with COPD exacerbation. Course complicated by right rectus sheath hematoma and supratherapeutic INR. Now presents with dysrhythmia and altered mental status with acutely worsening anemia. -transfer to [facility], as above -monitor with tele -4u pRBC ordered. Transfuse. Check H/H q6. -check EKG q6 with troponin. Trend x3. -check PT/INR, aPTT, fibrinogen, d-dimer -CMP, Mg/Phos, LDH -blood, urine, and sputum cx. Lactic acid. -stat CXR + blood gas -will place formal surgery and computer science intern consult Discussed with Dr. Oconnor. Plan to fully reverse warfarin with FFP, vitamin K, Kcentra. Transfuse 4u pRBC. Ihsan Gaytan MD R3 January 20, 2017 18:42
[2017-01-20] MEDS ORDERED: PROTHROMBIN COMPLEX CONC INJ 2,000 UNITS in SYRINGE/BAG 1 EA IV ONE (18:45)
[2017-01-20 18:57] LABS: BLOOD GAS BASE EXCESS -11.5 mmol/L (-2-2); BLOOD GAS CARBOXYHEMOGLOBIN 1.5 % (0-4); BLOOD GAS HCO3 13 mmol/L (22-26); BLOOD GAS METHEMOGLOBIN 1.2 % (0-2); BLOOD GAS O2 HGB SATURATION 96 % (90-100); BLOOD GAS OXYGEN CONTENT 11.1 Vol % (12.0-20.0); BLOOD GAS PCO2 27 mmHg (38-42); BLOOD GAS PO2 124 mmHg (61-120); BLOOD GAS TOTAL HGB 8.1 G/DL (12.0-16.0); CRITICAL VALUE YES; OXYGEN DEVICE Venti Mask; TEMP CORR TO 98.6
[2017-01-20 18:58] LABS: DRAW SITE RT BRACHIAL; FIO2 50 %; LITER FLOW 6 L/M; NUMBER OF ARTERIAL PUNCTURES 1; STAT YES; ULNAR PULSE PRESENT
[2017-01-20] MEDS ORDERED: SODIUM BICARBONATE 8.4% INJ 50 MEQ/50 ML SYR IV PUSH ONE (19:00)
[2017-01-20 19:05] LABS: AUTOMATED NEUTROPHIL # 15.8 TH/MM3 (1.8-7.7); HEMATOCRIT 23.5 % (39.0-51.0); HEMO FLAGS DIFF FINAL; LYMPH % 7.1 % (9.0-44.0); LYMPHOCYTE # 1.3 TH/MM3 (1.0-4.8); MEAN CELL VOLUME 89.4 FL (80.0-100.0); MEAN CORPUSCULAR HEMOGLOBIN 28.9 PG (27.0-34.0); MEAN CORPUSCULAR HGB CONC 32.3 % (32.0-36.0); MONO % 5.4 % (0.0-8.0); NEUT % 87.5 % (16.0-70.0); PLATELET COUNT 183 TH/MM3 (150-450); RED BLOOD COUNT 2.63 MIL/MM3 (4.50-5.90)
[2017-01-20] MEDS ORDERED: PROTHROMBIN COMPLEX IV ONE (19:15)
[2017-01-20 19:17] LABS: APTT (PATIENT) 46.4 SEC (24.3-30.1); INTERNATIONAL NORMALIZED RATIO 3.4 RATIO; PROTHROMBIN TIME - PATIENT 40.1 SEC (9.8-11.6)
[2017-01-20 19:36] LABS: MAGNESIUM 2.2 MG/DL (1.5-2.5)
[2017-01-20 19:37] LABS: ANION GAP 13 MEQ/L (5-15); AST (GOT) 8 U/L (15-37); BICARBONATE 19.5 MEQ/L (21.0-32.0); BLOOD UREA NITROGEN 74 MG/DL (7-18); CHLORIDE 106 MEQ/L (98-107); GLOMERULAR FILTRATION RATE 16 ML/MIN (>89); POTASSIUM 4.8 MEQ/L (3.5-5.1); SODIUM (NA) 138 MEQ/L (136-145)
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
--- NOTE | 2017-01-20 19:54 | RADRPT ---
EXAM DATE/TIME: 01/20/2017 18:53 [facility] COMPARISON: CHEST SINGLE AP, January 17, 2017, 22:15. INDICATIONS : Central line placement. MEDICAL HISTORY : Chronic obstructive pulmonary disease. Cerebrovascular disease. SURGICAL HISTORY : CABG. Pacemaker. ENCOUNTER: Subsequent ACUITY: 4 - 6 days PAIN SCORE: Non-responsive. LOCATION: Bilateral chest FINDINGS: A single view of the chest demonstrates pacer leads overlying right atrium and right ventricle. Media n sternotomy. Right central line in superior vena cava. Minimal basilar atelectasis. Mild cardiomegal y. Elevated left hemidiaphragm. No pneumothorax. Postoperative CABG. CONCLUSION: 1. Minimal basilar atelectasis. Elevated left hemidiaphragm. Postop CABG. Pacer leads overlie right a trium and right ventricle. Right central line in superior vena cava. Drew Aguero MD on January 20, 2017 at 19:49 Board Certified Radiologist. This report was verified electronically.
[2017-01-20] MEDS ORDERED: SODIUM BICARBONATE 8.4% INJ 150 MEQ in DEXTROSE 5% IN WATE 1000ML INJ 1,000 ML IV SCH ×2 (20:00)
[2017-01-20 20:04] LABS: ALKALINE PHOSPHATASE 79 U/L (45-117); ALT (GPT) 13 U/L (12-78); TOTAL BILIRUBIN ADULT 0.4 MG/DL (0.2-1.0)
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
[2017-01-20] MEDS ORDERED: ETOMIDATE 20 MG/10 ML VIAL ONE (20:32)
[2017-01-20 20:51] LABS: LACTIC ACID GHOST NOT REPORTABLE
[2017-01-20] MEDS ORDERED: DOCUSATE SODIUM 50 MG/SENNA 8.6 MG TAB PO SCH (21:00)
--- NOTE | 2017-01-20 21:35 | EKG ---
Date Performed: 01/20/2017 Time Performed: 19:01:28 PTAGE: 71 years EKG: ATRIAL FIBRILLATION WITH RAPID VENTRICULAR RESPONSE INTRAVENTRICULAR CONDUCTION DELAY ABNOR MAL ECG PREVIOUS TRACING : 01/20/2017 17.20 DOCTOR: Pooja Camacho Interpretating Date/Time 01/20/2017 21:33:19
--- NOTE | 2017-01-20 21:38 | EKG ---
Date Performed: 01/20/2017 Time Performed: 17:20:12 PTAGE: 71 years EKG: Atrial fibrillation with uncontrolled ventricular response. Electrical interference Interve ntricular conduction delay Abnormal ECG NO PREVIOUS TRACING DOCTOR: Pooja Camacho Interpretating Date/Time 01/20/2017 21:37:16
[2017-01-21] MEDS ORDERED: CHLORHEXIDINE GLUCONATE 2 % 1 PACK (2 CLOTHS) TOP SCH (04:00)
[2017-01-21] MEDS ORDERED: POLYETHYLENE GLYCOL 17 GM PKG PO SCH (09:00)
[2017-01-21] MEDS ORDERED: predniSONE 20 MG TAB PO SCH (09:00)
--- NOTE | 2017-01-21 10:40 | EKG ---
Date Performed: 01/20/2017 Time Performed: 20:26:02 PTAGE: 71 years EKG: Regular wide complex tachycardia Possible ventricular tachycardia May also be atrial arrhyt hmia with aberrancy Clinical corelation necessary Abnormal ECG NO PREVIOUS TRACING DOCTOR: Pooja Camacho Interpretating Date/Time 01/21/2017 10:40:21
--- NOTE | 2017-02-15 08:10 | HHI.DS ---
Summary Note Date of : January 20, 2017 Time Of : 2234 Admission Date January 19, 2017 at 18:21 Admitting Diagnosis COPD exacerbation, bronchitis, chest pain Diagnosis at Time of : (1) Rectus sheath hematoma ICD Code: S30.1XXA Diagnosis: Principal (2) Supratherapeutic INR ICD Code: R79.1 Diagnosis: Secondary (3) COPD exacerbation ICD Code: J44.1 Diagnosis: Secondary (4) CKD (chronic kidney disease) stage 3, GFR 30-59 ml/min ICD Code: N18.3 Diagnosis: Secondary (5) Cardiomyopathy ICD Code: I42.9 Diagnosis: Secondary Brief History 71-year-old male with history of COPD, CAD s/p CABG, CHF EF 30-35% on echo [id number], Atrial fibrillation s/p pacemaker, on Coumadin, presents for a 10 day history of productive cough. The patient reports his symptoms started with a "cold" 10 days ago with nasal congestion, rhinitis, and cough productive of white-yellow sputum. He's been taking Robitussin with some relief of his cough. He also reports shortness of breath, worse with exertion, and became very dyspneic yesterday. He also started experiencing chest pain at the left anterior chest radiating to the left posterior shoulder blade, worse with coughing and deep inspiration. He reports subjective fevers and chills, did not take his temperature at home. He's also been having intermittent nose bleeds over the past 10days. Denies abdominal pain, but does report some nausea. [facility]. Denies any sick contacts. Denies any other medical complaints at this time. Hospital Course 71 year old male admitted 01/17 with diagnosis of COPD exacerbation. CXR showed ? LLL PNA. Patient was started on Rocephin and Azitho + IV steroids. INR at time of admission elevated at 4.4. Was given vitamin K x1. He c/o significant abdominal pain 01/[address] showed extensive right rectus sheathe hematoma. Second round of vitamin K given and 4 u pRBC ordered. INR was 4.1 at that time. Antibiotics were DCed at that time, as well out of concern for persistently elevated INR. Per discussion with radiology, CXR findings not suggestive of PNA. At 1711 nurse called to report change in patient status. Patient had received 1st unit pRBC by that time. They reported abnormal rhythm on tele. In addition, patient had AMS. Halicat was called. EKG showed wide complex tachycardia. Transfer to ICU ordered. [employer] and surgery consulted. FFP ordered along with Kcentra and 4 u pRBC. [employer] called to bedside at approximately 2000. Patient had reported short-term seizure activity. Per nursing, apneic, as well. He was alert and oriented x3. Knew the senior vice president & general counsel, date of , middle name, location and date. [employer] Architect discussed intubation + mechanical ventilation. Patient refused. Aware refusing life support would likely result in . He was pronounced at 2235. Ihsan Gaytan MD R3 Feb 15, 2017 08:10
== END 2017-01-20 22:35 | disposition expired | DRG 191 ==
LOC: NEPC 21:28 → NEDA 01-18 00:50 → NEPGCP 01-18 02:38 → OBSVTOIN 01-19 18:21 → N04B 01-20 11:20 → HIMW 01-20 17:40
PROVIDERS: ADMIT Family Medicine; ATTEND Family Medicine
PROC: 30233K1 Transfusion of Nonautologous Frozen Plasma into Peripheral Vein, Percutaneous Approach (ICD-10-PCS; principal; 2017-01-20)
PROC: 30233N1 Transfusion of Nonautologous Red Blood Cells into Peripheral Vein, Percutaneous Approach (ICD-10-PCS; 2017-01-20)
DX: J44.1 Chronic obstructive pulmonary disease with (acute) exacerbation (principal); G82.20 Paraplegia, unspecified; I42.9 Cardiomyopathy, unspecified; I50.9 Heart failure, unspecified; I48.0 Paroxysmal atrial fibrillation; I25.10 Atherosclerotic heart disease of native coronary artery without angina pectoris; N18.3 Chronic kidney disease, stage 3 (moderate); R79.1 Abnormal coagulation profile; E78.5 Hyperlipidemia, unspecified; G89.29 Other chronic pain; M79.81 Nontraumatic hematoma of soft tissue; D50.0 Iron deficiency anemia secondary to blood loss (chronic); Z87.891 Personal history of nicotine dependence; Z95.1 Presence of aortocoronary bypass graft; Z79.01 Long term (current) use of anticoagulants; Z95.0 Presence of cardiac pacemaker
CPT/HCPCS: 36430; 36556; 36600; 71010; 74176; 76937; 80048; 80053; 82550; 82552; 82805; 83605; 83615; 83735; 83880; 84100; 84484; 85014; 85018; 85025; 85379; 85384; 85610; 85730; 86077; 86140; 86850; 86870; 86900; 86901; 86902; 86920; 86922; 86927; 87015; 87040; 93005; 93306; 94150; 94640; 94664; 99285; C9132; G0378; G8987-GP; G8988-GP; J0456; J0696; J1170; J1940; J2270; J2370; J2920; J7050; J7070; P9016; P9017; P9045